=== PATIENT | male | born 1975 | race Caucasian/White ===

== ENCOUNTER → 2018-10-18 | Outpatient (CLI) | payer OTHER ==
--- NOTE | 2018-10-18 17:06 | XR ---
PROCEDURE: XR lumbar spine 3V DATE AND TIME: 10/18/2018 4:53 PM CLINICAL INDICATION: pain after trauma TECHNIQUE: Department protocol COMPARISON: 06/19/2013 FINDINGS: There is no fracture or malalignment. Mild spondylosis changes are appreciated, similar to the prior study. The soft tissues are unremarkable. IMPRESSION: NO ACUTE PROCESS.
== END | disposition home or self-care (01) ==
LOC: RADXRMAIN 16:28
PROVIDERS: ATTEND Emergency Medicine
DX: S39.012A Strain of muscle, fascia and tendon of lower back, initial encounter (principal)
CPT/HCPCS: 72100

== ENCOUNTER 2019-03-22 13:12 | Emergency (ER) | payer BC, OTHER ==
[2019-03-22 13:18] VITALS: BP 153/89; PULSE 83; RESP 20; TEMP 98.3
[2019-03-22] MEDS ORDERED: CYCLOBENZAPRINE 10MG STARTER 3 TAB BTL PO STA (14:15)
[2019-03-22] MEDS ORDERED: KETOROLAC 30 MG/ML 1 ML VIAL IM STA (14:15)
[2019-03-22] MEDS ORDERED: ACET/COD 300 MG/30 MG STARTER PACK 6 TAB BTL PO STA (14:15)
--- NOTE | 2019-03-22 14:18 | ED ---
Back Pain HPI - General Chief Complaint: Back Pain/Injury Stated Complaint: back injury Time Seen by Provider: 03/22/19 13:58 Source: patient Limitations: no limitations - History of Present Illness Initial Comments: 44-year-old male patient presents to the emergency department today for evaluation of low back pain. Patient states he did have a work injury in October. Patient states that he had x-rays done and underwent physical therapy initially. He states that his symptoms never completely improved. States that a couple of days ago he was at work and spent 5 hours sitting and a Hi[employer], when he got up he had onset of low back pain. Patient states his low back feels very stiff and there is a pinching sensation. Patient states occasionally his legs will feel as if they are going to give out. He occasionally has pain radiating down the outside of both legs. He denies numbness or tingling to the lower extremities. Denies any saddle anesthesia or loss of bowel or bladder control. Denies fever or chills. Denies abdominal pain. Patient denies any headache, neck pain, chest pain, shortness of breath, dizziness, weakness, abdominal pain, nausea, vomiting, or difficulties with bowel movements or urination. - Related Data Previous Rx's Medication Instructions Recorded Hydrocodone/Acetaminophen 1 each PO Q4HR PRN #20 tablet 01/28/14 [Hydrocodone/Acetaminophen 5-325] Cyclobenzaprine [Flexeril] 10 mg PO TID #15 tab 03/22/19 Allergies Allergy/AdvReac Type Severity Reaction Status Date / Time No Known Allergies Allergy Verified 03/22/19 13:18 Review of Systems ROS Statement: Those systems with pertinent positive or pertinent negative responses have been documented in the HPI. ROS Other: All systems not noted in ROS Statement are negative. Past Medical History Past Medical History: No Reported History History of Any Multi-Drug Resistant Organisms: None Reported Past Surgical History: Orthopedic Surgery Additional Past Surgical History / Comment(s): Knee reconstruction Past Psychological History: No Psychological Hx Reported Smoking Status: Never smoker Past Alcohol Use History: Rare Past Drug Use History: None Reported General Exam Limitations: no limitations General appearance: alert, in no apparent distress, other (This is a well- developed, well-nourished adult male patient in no acute distress. Vital signs upon presentation are temperature 98.3F, pulse 83, respirations 20, blood pressure 153/89, pulse ox 99% on room air.) Respiratory exam: Present: normal lung sounds bilaterally. Absent: respiratory distress, wheezes, rales, rhonchi, stridor Cardiovascular Exam: Present: regular rate, normal rhythm, normal heart sounds. Absent: systolic murmur, diastolic murmur, rubs, gallop, clicks GI/Abdominal exam: Present: soft, normal bowel sounds. Absent: distended, tenderness, guarding, rebound, rigid Extremities exam: Present: normal inspection, full ROM, normal capillary refill, other (Skin to the lower extremities is pink, warm, dry. Cap refills less than 3 seconds. Post tibial pulses are 2+ and equal bilaterally.). Absent: tenderness, pedal edema, joint swelling, calf tenderness Back exam: Present: normal inspection. Absent: vertebral tenderness Neurological exam: Present: alert, oriented X3, CN II-XII intact Psychiatric exam: Present: normal affect, normal mood Skin exam: Present: warm, dry, intact, normal color. Absent: rash Course Vital Signs 03/22/19 13:15 Temperature 98.3 F Pulse Rate 83 Respiratory 20 Rate Blood Pressure 153/89 O2 Sat by Pulse 99 Oximetry Medical Decision Making - Medical Decision Making 44-year-old male patient presents to the emergency department today for evaluation of exacerbation of low back pain from an injury in October. Physical examination reveals good neurovascular status. He is neurologically intact. Patient had no new injury so x-rays were not obtained today. Discharged with medication for pain management and instructions to apply warm moist heat. He is also instructed to perform gentle range of motion exercises. He is instructed to follow-up with the orthopedic employment specialist/program manager Dr. Fernández. Return parameters were discussed in detail. He verbalizes understanding and agrees with this plan. Disposition Clinical Impression: Low back pain Disposition: HOME SELF-CARE Condition: Good Instructions (If sedation given, give patient instructions): Acute Low Back Pain (ED), Lower Back Exercises (ED), Warm Compress or Soak (ED) Additional Instructions: Take medications as directed. Perform low back exercises 1-2 times per day. Apply warm compresses to the area 20 minutes at a time at least 4 times daily. Follow-up with medical accounts receivable specialist for further evaluation, discuss MRI. Return to the emergency department immediately for any new, worsening, or concerning symptoms. Prescriptions: Cyclobenzaprine [Flexeril] 10 mg PO TID #15 tab Is patient prescribed a controlled substance at d/c from ED?: No Referrals: Solo Jarrett DO [Primary Care Provider] - 1-2 days Rayna Blankenship DO [Doctor of Osteopathic Medicine] - 1-2 days Time of Disposition: 14:18
== END 2019-03-22 14:41 | disposition home or self-care (01) ==
LOC: EC 13:12
DX: M54.5 Low back pain (principal)
CPT/HCPCS: 99283; 96372; J1885

== ENCOUNTER 2019-06-23 13:32 | Observation (INO) | payer BC, OTHER ==
[2019-06-23 14:44] LABS: Basophils # (A) 0.3 k/uL (0-0.2); Basophils % (A) 2 %; Eosinophils # (A) 0.3 k/uL (0-0.7); Eosinophils % (A) 2 %; HCT 49.5 % (39.0-53.0); HGB 16.7 gm/dL (13.0-17.5); Lymphocytes # (A) 0.8 k/uL (1.0-4.8); Lymphocytes % (A) 5 %; MCH 31.3 pg (25.0-35.0); MCHC 33.7 g/dL (31.0-37.0); Mean Platelet Volume 7.2; Monocytes # (A) 0.9 k/uL (0-1.0); Monocytes % (A) 6 %; Neutrophils # (A) 13.1 k/uL (1.3-7.7); Neutrophils % (A) 84 %; Platelet Count 241 k/uL (150-450); RBC 5.32 m/uL (4.30-5.90); RDW 12.4 % (11.5-15.5); WBC 15.5 k/uL (3.8-10.6)
[2019-06-23] MEDS: SODIUM CHLORIDE 0.9% 500 ML 500 ML IV SCH ×2 (14:52→20:01)
[2019-06-23 14:53] LABS: Albumin 4.1 g/dL (3.5-5.0); Potassium 4.2 mmol/L (3.5-5.1); Total Bilirubin 0.7 mg/dL (0.2-1.3); Total Protein 7.1 g/dL (6.3-8.2)
--- NOTE | 2019-06-23 14:58 | ED ---
General Adult HPI - General Chief complaint: Skin/Abscess/Foreign Body Stated complaint: infected tattoo Source: patient, RN notes reviewed Mode of arrival: ambulatory Limitations: no limitations - History of Present Illness Initial comments: 44-year-old male without any significant past medical history presents to the emergency department for a chief complaint of right arm infection. Patient states that 3 days ago on Wednesday he got a tattoo by his friend at his friend's home. States he uses all clean equipment. Patient states that the next day it started to become red and swollen. Patient states he felt like he had a fever at night. He saw his doctor yesterday and had a Rocephin injection around 3:00 PM. He also started Bactrim last night around 5:00 PM. He called his doctor today to check in and his doctor said since it is not getting better he needs to come to the emergency department for evaluation. Patient states infection is not improving on the antibiotics. He does not notice any streaking redness. States he still feels somewhat feverish. Patient has no other complaints at this time including shortness of breath, chest pain, abdominal pain, nausea or vomiting, headache, or visual changes. - Related Data Home Medications Medication Instructions Recorded Confirmed Methylphenidate HCl 27 mg PO DAILY 06/23/19 06/23/19 [Methylphenidate HCl ER] Mupirocin 2% Oint [Bactroban 2% 1 applic TOPICAL BID 06/23/19 06/23/19 Oint] Sulfamethoxazole/Trimethoprim 1 tab PO BID 06/23/19 06/23/19 [Sulfamethoxazole-Tmp Ds Tablet] Allergies Allergy/AdvReac Type Severity Reaction Status Date / Time No Known Allergies Allergy Verified 06/23/19 16:35 Review of Systems ROS Statement: Those systems with pertinent positive or pertinent negative responses have been documented in the HPI. ROS Other: All systems not noted in ROS Statement are negative. Past Medical History Past Medical History: No Reported History History of Any Multi-Drug Resistant Organisms: None Reported Past Surgical History: Orthopedic Surgery Additional Past Surgical History / Comment(s): Knee reconstruction Past Psychological History: No Psychological Hx Reported Smoking Status: Never smoker Past Alcohol Use History: Rare Past Drug Use History: None Reported General Exam Limitations: no limitations General appearance: alert, in no apparent distress Head exam: Present: atraumatic, normocephalic, normal inspection Eye exam: Present: normal appearance, PERRL, EOMI. Absent: scleral icterus, co njunctival injection, periorbital swelling ENT exam: Present: normal exam Neck exam: Present: normal inspection, full ROM. Absent: tenderness, mening ismus, lymphadenopathy Respiratory exam: Present: normal lung sounds bilaterally. Absent: respiratory distress, wheezes, rales, rhonchi, stridor Cardiovascular Exam: Present: regular rate, normal rhythm, normal heart sounds. Absent: systolic murmur, diastolic murmur, rubs, gallop, clicks Extremities exam: Present: full ROM (Full range of motion of the right hand wrist and elbow.), normal capillary refill (Capillary refill less than 2 seconds, radial pulse 2+ in the right upper extremity.), other (Patient has mild erythema with moderate edema noted of the volar right forearm. Compartments are soft. new tattoo is noted with small peeling of skin. No streaking redness. I do not see any pustules or abscesses.). Absent: tenderness (Tenderness along the medial aspect of the right forearm), pedal edema, calf tenderness Course Vital Signs 06/23/19 06/23/19 13:44 17:31 Temperature 99.5 F Pulse Rate 105 H 93 Respiratory 18 18 Rate Blood Pressure 144/83 138/67 O2 Sat by Pulse 98 97 Oximetry Medical Decision Making - Medical Decision Making Patient mild tachycardic with a heart rate of 105. Temperature is 99.5. Patient has not developed a fever here in the emergency department. Patient does have leukocytosis with a left shift which is likely secondary to the infection. CMP unremarkable. Creatinine is 1.41 however this appears chronic. Lactic 0.9. X-ray shows no acute osseous abnormality. There is soft tissue swelling diffusely. I discussed this case with Dr. Mcclelland. At this time as patient has been on antibiotics for about 24 hours and infection is not improving in his fund of leukocytosis with subjective fevers he will be admitted for IV antibiotics. Patient was started on Rocephin and vancomycin was added to cover for MRSA. Dr. Chapman recommends 2 g Kefzol every 8 hours - Lab Data Result diagrams: 06/23/19 14:28 06/23/19 14:28 Lab Results 06/23/19 06/23/19 06/23/19 Range/Units 14:28 14:28 14:28 WBC 15.5 H (3.8-10.6) k/uL RBC 5.32 (4.30-5.90) m/uL Hgb 16.7 (13.0-17.5) gm/dL Hct 49.5 (39.0-53.0) % MCV 93.0 (80.0-100.0) fL MCH 31.3 (25.0-35.0) pg MCHC 33.7 (31.0-37.0) g/dL RDW 12.4 (11.5-15.5) % Plt Count 241 (150-450) k/uL Neutrophils % 84 % Lymphocytes % 5 % Monocytes % 6 % Eosinophils % 2 % Basophils % 2 % Neutrophils # 13.1 H (1.3-7.7) k/uL Lymphocytes # 0.8 L (1.0-4.8) k/uL Monocytes # 0.9 (0-1.0) k/uL Eosinophils # 0.3 (0-0.7) k/uL Basophils # 0.3 H (0-0.2) k/uL Sodium 136 L (137-145) mmol/L Potassium 4.2 (3.5-5.1) mmol/L Chloride 102 (98-107) mmol/L Carbon Dioxide 25 (22-30) mmol/L Anion Gap 9 mmol/L BUN 14 (9-20) mg/dL Creatinine 1.41 H (0.66-1.25) mg/dL Est GFR (CKD-EPI)AfAm 71 (>60 ml/min/1.73 sqM) Est GFR (CKD-EPI)NonAf 61 (>60 ml/min/1.73 sqM) Glucose 105 H (74-99) mg/dL Plasma Lactic Acid Bernardino 0.9 (0.7-2.0) mmol/L Calcium 9.0 (8.4-10.2) mg/dL Total Bilirubin 0.7 (0.2-1.3) mg/dL AST 41 (17-59) U/L ALT 30 (4-49) U/L Alkaline Phosphatase 64 (38-126) U/L Total Protein 7.1 (6.3-8.2) g/dL Albumin 4.1 (3.5-5.0) g/dL Disposition Clinical Impression: Cellulitis, Leukocytosis Disposition: ADMITTED IP TO THIS HOSP Condition: Fair Is patient prescribed a controlled substance at d/c from ED?: No Time of Disposition: 15:45
--- NOTE | 2019-06-23 15:21 | XR ---
EXAMINATION TYPE: XR forearm RT DATE OF EXAM: 06/23/2019 COMPARISON: None HISTORY: Infected tattoo swelling right arm TECHNIQUE: 2 view right forearm FINDINGS: No acute fractures or dislocations are evident. No cortical erosion is evident No radiopaque foreign bodies in soft tissues. Diffuse soft tissue swelling present. IMPRESSION: 1. No acute osseous abnormality. Soft tissue swelling diffusely
[2019-06-23] MEDS ORDERED: traMADol 50 MG TAB PO PRN (15:45)
[2019-06-23] MEDS ORDERED: ACETAMINOPHEN TAB 325 MG TAB PO PRN (15:45)
[2019-06-23] MEDS ORDERED: NALOXONE 0.4 MG/ML 1 ML VIAL IV PRN (15:45)
[2019-06-23] MEDS ORDERED: VANCOMYCIN IV PER PHARMACY 1 EACH MISC MISCELLANE PRN (15:47)
[2019-06-23] MEDS ORDERED: VANCOMYCIN 1,750 MG in SODIUM CHLORIDE 0.9% 500 ML 500 ML IVPB ONE (16:00)
[2019-06-23] MEDS ORDERED: TEMAZEPAM 15 MG CAP PO PRN (18:05)
[2019-06-23] MEDS ORDERED: ALPRAZolam 0.25 MG TAB PO PRN (18:05)
[2019-06-23] MEDS: SODIUM CHLORIDE 0.9% 1,000 ML IV SCH ×2 (20:01→23:29)
[2019-06-23] MEDS: diphenhydrAMINE 50 MG/ML 1 ML VIAL IVP SCH ×2 (20:17→23:27)
[2019-06-23] MEDS: FAMOTIDINE 20 MG/2 ML VIAL IV SCH (21:12)
--- NOTE | 2019-06-23 21:28 | HP ---
HISTORY AND PHYSICAL I am covering for Dr. Jarrett. DATE OF SERVICE: 06/23/2019 CHIEF COMPLAINTS: Pain and swelling and redness of the right forearm after the tattoos. HISTORY OF PRESENT ILLNESS: This 44-year-old gentleman with a past medical history of no significant medical issues otherwise being followed by Dr. Jarrett in the outpatient setting recently had a tattoo on the right forearm. The patient apparently had a tattoo from the voice over artist at home, where the artist was keeping everything sterile, according to him. The patient apparently put a new substance on top of it and was taped over cellophane tape, but subsequently the patient was feeling uncomfortable and took off that cellophane tape off before the prescribed period. The patient noted some redness and erythema and some pain and the patient came to [facility] for further evaluation and treatment. The patient was started on outpatient antibiotics. X-rays have been taken and the patient was admitted for further evaluation and treatment. The patient also had a fever. He was given one dose of Rocephin, also. There is no history of any headache, loss of consciousness. No chest pain, palpitations, hematochezia or melena at this time. PAST MEDICAL HISTORY: History of knee reconstruction. HOME MEDICATIONS: 1. Bactrim DS one p.o. b.i.d. 2. Neosporin 2% local application. 3. Methylphenidate 27 mg p.o. daily. ALLERGIES: NONE. FAMILY HISTORY: No history of heart disease or strokes in the family. SOCIAL HISTORY: No history of smoking. No history of alcohol intake. REVIEW OF SYSTEMS: ENT: No diminished hearing. No diminished vision. CARDIOVASCULAR SYSTEM: No angina, palpitations. RESPIRATORY SYSTEM: No cough, hemoptysis. GI: No nausea, vomiting, diarrhea. : No dysuria or retention. NERVOUS SYSTEM: No numbness, weakness. ALLERGY/IMMUNOLOGY: No asthma, hayfever. MUSCULOSKELETAL: As mentioned earlier. HEMATOLOGY/ONCOLOGY: No history of anemia. ENDOCRINE: No history of diabetes, hypothyroidism. CONSTITUTIONAL: As mentioned earlier. DERMATOLOGY: Negative. RHEUMATOLOGY: Negative. PSYCHIATRY: As mentioned earlier. PHYSICAL EXAMINATION: Patient alert and oriented x3. Pulse 93, blood pressure 130/67, respiration 18, temperature 99.5, pulse ox 97% on room air. HEENT: Conjunctivae normal. NECK: No jugular venous distention. CARDIOVASCULAR SYSTEM: S1, S2 muffled. RESPIRATORY SYSTEM: Breath sounds diminished at the bases. No rhonchi. No crackles. ABDOMEN: Soft, non-tender. LEGS: No edema. No swelling. NERVOUS SYSTEM: No focal deficit. EXAMINATION OF THE RIGHT HAND: Significant erythema as well as swelling and tenderness of the area of the new tattoo which was black in color and fills up almost all the volar aspect of the right forearm. Some erythema also noted in the site and the periphery where the cellophane tape was there apparently. SKIN: As mentioned earlier. JOINTS: No active deforming arthropathy. LYMPHATICS: No lymph node palpable in neck, axillae or groin. LABS: WBC 15.5 and creatinine is 1.41. Previous creatinine was up to 1.29, but subsequently normal. ASSESSMENT: 1. Acute cellulitis of the right forearm with systemic inflammatory response syndrome. 2. Increased white count. 3. Increased creatinine; possibly mild acute renal failure. 4. Hyponatremia. 5. Rule out allergy. 6. History of knee reconstruction. RECOMMENDATIONS AND DISCUSSION: In this 44-year-old gentleman who presented with multiple complex medical issues, we will monitor the patient closely, continue the current medications, continue symptomatic treatment. Will initiate broad-spectrum IV antibiotics. Otherwise, IV fluids. Repeat labs in the morning. Other than that, I would recommend continuing the current medications. Symptomatic treatment also will be provided. I would also recommend antiallergic medications and continue to monitor. Further recommendations to follow. A copy of this dictation is being forwarded to Dr. Jarrett, who is the primary physician. Discussed with the patient, who understands and agrees. MMODL / IJN: [id number] / MTDD
[2019-06-24] MEDS ORDERED: VANCOMYCIN 1,750 MG in SODIUM CHLORIDE 0.9% 500 ML 500 ML IVPB SCH (05:00)
[2019-06-24] MEDS: diphenhydrAMINE 50 MG/ML 1 ML VIAL IVP SCH ×3 (05:20→17:15)
[2019-06-24] MEDS: FAMOTIDINE 20 MG/2 ML VIAL IV SCH ×2 (07:42→19:39)
[2019-06-24 08:13] LABS: Calcium 8.1 mg/dL (8.4-10.2); Potassium 4.3 mmol/L (3.5-5.1)
[2019-06-24 08:55] LABS: Basophils # (A) 0.1 k/uL (0-0.2); Basophils % (A) 1 %; Eosinophils # (A) 0.3 k/uL (0-0.7); Eosinophils % (A) 2 %; HCT 45.9 % (39.0-53.0); HGB 15.4 gm/dL (13.0-17.5); Lymphocytes # (A) 1.2 k/uL (1.0-4.8); Lymphocytes % (A) 12 %; MCH 31.8 pg (25.0-35.0); MCHC 33.5 g/dL (31.0-37.0); MCV 94.7 fL (80.0-100.0); Mean Platelet Volume 7.8; Monocytes # (A) 0.6 k/uL (0-1.0); Monocytes % (A) 6 %; Neutrophils # (A) 8.1 k/uL (1.3-7.7); Neutrophils % (A) 77 %; Platelet Count 223 k/uL (150-450); RBC 4.84 m/uL (4.30-5.90); RDW 12.6 % (11.5-15.5); WBC 10.6 k/uL (3.8-10.6)
[2019-06-24] MEDS: METHYLPHENIDATE HCL 5 MG TAB PO SCH ×3 (09:51→10:41)
[2019-06-24] MEDS: SODIUM CHLORIDE 0.9% 1,000 ML IV SCH (11:37)
--- NOTE | 2019-06-24 20:26 | PN ---
PROGRESS NOTE DATE OF SERVICE: 06/24/2019 I am covering for Dr. Jarrett. This 44-year-old gentleman admitted with significant cellulitis after tattoo in the right forearm is being closely monitored at this time. No chest pain. No palpitations. No fever. Patient on IV antibiotics. Cultures are negative so far. EXAM: Alert and oriented times three. Pulse is 73. Blood pressure 133/84, respiration 16, temperature 98.1, pulse ox 98% on room air. HEENT is conjunctivae normal. NECK: No JVD. CARDIOVASCULAR: S1, S2 normal. RESPIRATIONS: Breath sounds diminished in the bases. No rhonchi. No crackles. ABDOMEN is soft, nontender. LEGS no edema. No swelling. Examination of the right forearm still significant swelling and tattoo area present. Some erythema, is improving significantly. Nervous system: No focal deficits. LABS: WBC 10.6, sodium 135 and creatinine is 1.35. ASSESSMENT: 1. Acute cellulitis of the right forearm with SARS present on admission, at the site of recent tattoo. 2. Increased WBC. 3. Increased creatinine with possible mild acute renal failure. 4. Hyponatremia. 5. Rule out allergic reaction. 6. History of knee reconstruction. RECOMMENDATIONS AND DISCUSSION: I recommend to continue current medications, symptomatic treatment. Continue with IV antibiotics. Otherwise, I would recommend to continue to follow. Continue with cautious IV fluids. Repeat labs tomorrow and further recommendations to follow. Recommend the patient follow up with Dr. Jarrett closely after discharge. MMODL / IJN: [id number] /
[2019-06-25] MEDS: diphenhydrAMINE 50 MG/ML 1 ML VIAL IVP SCH ×5 (01:00→23:55)
[2019-06-25] MEDS: SODIUM CHLORIDE 0.9% 1,000 ML IV SCH ×2 (02:40→18:46)
[2019-06-25] MEDS: METHYLPHENIDATE HCL 5 MG TAB PO SCH ×2 (07:55→13:25)
[2019-06-25] MEDS: FAMOTIDINE 20 MG/2 ML VIAL IV SCH ×2 (07:56→19:36)
[2019-06-25 08:09] LABS: Calcium 8.4 mg/dL (8.4-10.2); Potassium 4.4 mmol/L (3.5-5.1)
[2019-06-25 08:15] LABS: Basophils # (A) 0.1 k/uL (0-0.2); Basophils % (A) 2 %; Eosinophils # (A) 0.2 k/uL (0-0.7); Eosinophils % (A) 3 %; HCT 46.6 % (39.0-53.0); HGB 15.7 gm/dL (13.0-17.5); Lymphocytes # (A) 1.1 k/uL (1.0-4.8); Lymphocytes % (A) 15 %; MCH 31.7 pg (25.0-35.0); MCHC 33.6 g/dL (31.0-37.0); MCV 94.1 fL (80.0-100.0); Mean Platelet Volume 7.7; Monocytes # (A) 0.5 k/uL (0-1.0); Monocytes % (A) 6 %; Neutrophils # (A) 5.6 k/uL (1.3-7.7); Neutrophils % (A) 73 %; Platelet Count 248 k/uL (150-450); RBC 4.95 m/uL (4.30-5.90); RDW 12.7 % (11.5-15.5); WBC 7.7 k/uL (3.8-10.6)
--- NOTE | 2019-06-25 19:19 | PN ---
PROGRESS NOTE DATE OF SERVICE: 06/25/2019 This 44-year-old gentleman who was admitted with significant infection and cellulitis of the right forearm, on IV antibiotics. The patient had persistent swelling. Infectious disease evaluation has been sought. No chest pain. No palpitations. No fever. PHYSICAL EXAMINATION: Alert and oriented x3. Pulse 78, blood pressure 137/76, respirations 16, temperature 98.7, pulse ox 98% on room air skin: EYES: Conjunctivae normal. NECK: No JVD. CARDIOVASCULAR: S1, S2 muffled. LUNGS: Diminished breath sounds at the bases. No rhonchi, no crackles. ABDOMEN: Soft, nontender. LEGS: No swelling. NERVOUS SYSTEM: No focal deficits. Examination of the right forearm: Significant swelling present. Erythema around the tattoo obey is also present. LABS: CBC within normal. BMP also within normal. ASSESSMENT: 1. Acute cellulitis of the right forearm with systemic inflammatory response syndrome present on admission at the site of new tattoo. 2. Increased WBC, improved. 3. Increased creatinine with possible mild acute renal failure, improved. 4. Hyponatremia. 5. Rule out allergic reaction. 6. History of knee reconstruction. RECOMMENDATIONS AND DISCUSSION: Recommend to continue current medication, continue to monitor, continue the IV antibiotics. Also recommend infectious disease evaluation because of the persistent swelling and as well as the erythema also. Cefazolin has been initiated at this time and continue the rest of medications, pain medications, and Dr. Jarrett will follow tomorrow. MMODL / IJN: [id number] /
[2019-06-26] MEDS: diphenhydrAMINE 50 MG/ML 1 ML VIAL IVP SCH (05:11)
[2019-06-26] MEDS: SODIUM CHLORIDE 0.9% 1,000 ML IV SCH (06:02)
--- NOTE | 2019-06-26 06:48 | CONS ---
CONSULTATION DATE OF SERVICE: 06/25/2019 REASON FOR CONSULTATION: Right forearm cellulitis. HISTORY OF PRESENT ILLNESS: The patient is a 44-year-old male who did have a tattoo on his right forearm on Wednesday that is 3 days prior to presentation to the hospital. The patient subsequently developing pain and swelling and redness to the right arm, describing the pain to be more of a throbbing and sharp intensity about 5 to 6/10 and no radiation with associated swelling and redness. The patient felt feverish. The patient apparently has been evaluated by PCP in the outpatient setting and received a dose of Rocephin and was started on Bactrim DS. However, the patient apparently was not feeling well the next day, hence he presented to the hospital. On presentation to the hospital, the patient did have a low-grade fever of 99.5. He did have elevated white count 15.5. Patient received a dose of vancomycin and cefazolin. He did have x- rays of the arm did show some soft tissue swelling. Hence, Infectious Disease was consulted for further recommendations regarding antibiotic therapy. REVIEW OF SYSTEMS: Positive points has been mentioned in HPI. Rest of systems negative. PAST MEDICAL HISTORY: No major illnesses. PAST SURGICAL HISTORY: reconstruction. SOCIAL HISTORY: Rarely drinks. Denies smoking or drug use. FAMILY HISTORY: No pertinent findings noticed. ALLERGIES: No known drug allergies. MEDICATIONS: Medications include the patient is currently on Tylenol, Xanax, cefazolin 2 grams q.8 hours, Benadryl, Pepcid, Ritalin, Narcan, Restoril and Ultram. PHYSICAL EXAMINATION: Blood pressure is 137/76, pulse of 78, temperature is 98.7. He is 99% on room air. General description is a middle-aged male lying in bed in no distress. No tachypnea or accessory muscle of respiration use. HEENT: Examination shows no pallor or scleral icterus. Oral mucous membranes dry. No pharyngeal erythema or thrush. NECK: Trachea is central. No thyromegaly. LUNGS: Unlabored breathing, clear to auscultation anteriorly. No wheeze or crackle. HEART: S1, S2. Regular rate and rhythm. ABDOMEN: Soft, no tenderness. No guarding or rigidity. EXTREMITIES: No edema of feet. EXAMINATION RIGHT ARM: Tattoo site has minimal swelling, apparently the redness has seemed to be improved. There is no induration or fluctuation or drainage. NEUROLOGICALLY: The patient is awake, alert, oriented x3. Mood and affect normal. LABS: Hemoglobin is 15.7 with white count 7.7 admission white count 15.5. BUN of 12, creatinine 1.24. Blood culture has been negative so far. DIAGNOSTIC IMPRESSION AND PLAN: Patient with right arm cellulitis site of his recent tattoo, likely from a gram- positive skin chase such as strep. Clinically doubt methicillin-resistant Staphylococcus aureus or gram-negative infection. PLAN: 1. We will keep the patient on cefazolin 2 grams q.8 hours for another 24 hours while waiting for the blood culture to finalized. 2. If the blood culture remains to be negative and the patient did show overall improvement to finish therapy with oral Keflex 500 p.o. q.6 hours for another 7 to 10 days and a close outpatient followup. Thank you for this consultation. Will follow this patient along with you. MMPALLAVI / LLOYDN: [id number] / ROSANNA
[2019-06-26 06:56] VITALS: BP 143/94; PULSE 66; RESP 16; TEMP 98.5
[2019-06-26] MEDS: METHYLPHENIDATE HCL 5 MG TAB PO SCH (06:57)
[2019-06-26] MEDS: FAMOTIDINE 20 MG/2 ML VIAL IV SCH (06:58)
[2019-06-26 07:00] LABS: Basophils % (A) 0 %; Eosinophils # (A) 0.3 k/uL (0-0.7); Eosinophils % (A) 4 %; HCT 46.3 % (39.0-53.0); HGB 15.7 gm/dL (13.0-17.5); Lymphocytes # (A) 1.5 k/uL (1.0-4.8); Lymphocytes % (A) 20 %; MCV 94.2 fL (80.0-100.0); Mean Platelet Volume 7.2; Monocytes # (A) 0.4 k/uL (0-1.0); Monocytes % (A) 5 %; Neutrophils # (A) 5.4 k/uL (1.3-7.7); Neutrophils % (A) 69 %; Platelet Count 262 k/uL (150-450); RBC 4.92 m/uL (4.30-5.90); RDW 12.6 % (11.5-15.5); WBC 7.8 k/uL (3.8-10.6)
[2019-06-26 07:14] LABS: Calcium 8.5 mg/dL (8.4-10.2); Potassium 4.4 mmol/L (3.5-5.1)
--- NOTE | 2019-06-26 10:09 | P.DS ---
Providers Date of admission: 06/23/19 15:50 Expected date of discharge: 06/26/19 Attending physician: Solo Jarrett Consults: 06/25/19 11:16 Consult Physician Routine Consulting Provider: Liam Richter Consult Reason/Comments: cellulitis Do you want consulting provider notified?: Already Contacted Primary care physician: Solo Jarrett [facility] Course: Final Diagnoses: Acute cellulitis of right forearm at the site of new tattoo with early sepsis, present on admission, failed outpatient treatment. Suspect strep, doubt MRSA clinically as per ID. Leukocytosis, secondary to the above, resolved Acute renal failure Hospital course: This a 44-year-old gentleman admitted with significant infection/cellulitis of the right forearm at the site of new tattoo, failed outpatient treatment. Evaluated by infectious disease. Maintained on IV antibiotics with significant clinical improvement. Afebrile, normal WBC, blood cultures remain negative at 48 hours. Patient is being discharged home on Keflex, as recommended per ID, in a stable condition with guarded prognosis. EXAM: GEN: Alert and oriented 3, no acute distress CV: Regular S1 and S2 LUNGS: Clear to auscultation ABD: Soft nontender nondistended, positive bowel sounds EXT: Right forearm tattoo site minimal edema, redness and tenderness. No induration, no drainage. NEURO: No focal deficits. The impression and plan of care has been dictated as directed. : I performed a history and examination of this patient, discussed the same with the dictator. I agree with the dictator's note ,documented as a scribe. Any additional findings or plans will be noted. Patient Condition at Discharge: Stable Plan - Discharge Summary Discharge Rx Participant: No New Discharge Prescriptions: New Cephalexin [Keflex] 500 mg PO Q6HR #40 cap Pantoprazole Sodium [Protonix] 40 mg PO DAILY #10 tablet.dr Granados Methylphenidate HCl [Methylphenidate HCl ER] 27 mg PO DAILY Discontinued Sulfamethoxazole/Trimethoprim [Sulfamethoxazole-Tmp Ds Tablet] 1 tab PO BID Mupirocin 2% Oint [Bactroban 2% Oint] 1 applic TOPICAL BID Discharge Medication List Methylphenidate HCl [Methylphenidate HCl ER] 27 mg PO DAILY 06/23/19 [History] Cephalexin [Keflex] 500 mg PO Q6HR #40 cap 02/10/20 [Rx] Pantoprazole Sodium [Protonix] 40 mg PO DAILY #10 tablet. 06/26/19 [Rx] Follow up Appointment(s)/Referral(s): Solo Jarrett DO [Primary Care Provider] - 07/04/19 11:40 am Ambulatory/Diagnostic Orders: Complete Blood Count w/diff [LAB.AMB] Time Frame: 3 Days, Location: None Selected Patient Instructions/Handouts: Cellulitis (DC) Activity/Diet/Wound Care/Special Instructions: off work until F/U visit. Please provide note/form
== END 2019-06-26 10:19 | disposition home or self-care (01) ==
LOC: EC 13:32 → INTOOBSV 15:50 → 4SSUR 15:50 → UNDODISIN 06-26 10:19
PROVIDERS: ADMIT Family Medicine; ATTEND Family Medicine
DX: A41.9 Sepsis, unspecified organism (principal); L03.113 Cellulitis of right upper limb; N17.9 Acute kidney failure, unspecified; E87.1 Hypo-osmolality and hyponatremia; Z98.890 Other specified postprocedural states; Z79.899 Other long term (current) drug therapy
CPT/HCPCS: 96376 ×4; 96366 ×4; 96367; 96375; 96361; 96365; 99284; 36415; 80053; 80048 ×3; 83605; 85025 ×4; 87040; 73090; G0378 ×4; J3370; J1200 ×4; J0690 ×4; J0696

== ENCOUNTER → 2020-03-25 | Outpatient (CLI) | payer BC | END | disposition home or self-care (01) | LOC: LABWHC1 14:57 | PROVIDERS: ATTEND Emergency Medicine | DX: Z20.828 Contact with and (suspected) exposure to other viral communicable diseases (principal) | CPT/HCPCS: U0003; C9803 ==

== ENCOUNTER → 2021-04-04 | Outpatient (CLI) | payer OTHER ==
--- NOTE | 2021-04-05 05:05 | MR ---
EXAMINATION TYPE: MR knee LT wo con DATE OF EXAM: 04/04/2021 COMPARISON: None HISTORY: Sprain of left knee Multiplanar multiecho imaging of the left knee without contrast. There is intact anterior and posterior cruciate ligaments. There is a mild knee joint effusion. There is small area of increased signal in the posterior horn of the medial meniscus without extension to the articular surface. The lateral meniscus appears intact. The collateral ligaments are intact. Ther e is mild narrowing of the medial joint space of the knee. There is mild spurring of the femoral and tibial condyles. I see no evidence of a fracture. There is no focal bone destruction. IMPRESSION: Mild knee joint effusion. Small intrasubstance tear posterior horn of the medial meniscus. No evidenc e of ligamentous tear. Osteoarthritic mild changes.
== END ==
LOC: RADMRIMAIN 18:58
PROVIDERS: ATTEND Emergency Medicine
DX: M23.322 Other meniscus derangements, posterior horn of medial meniscus, left knee (principal); M25.462 Effusion, left knee; M17.12 Unilateral primary osteoarthritis, left knee

== ENCOUNTER → 2021-05-30 | Outpatient (CLI) | payer BC ==
[2021-05-30 09:07] LABS: Basophils % (A) 1 %; Eosinophils # (A) 0.2 k/uL (0-0.7); Eosinophils % (A) 2 %; HCT 45.9 % (39.0-53.0); HGB 15.7 gm/dL (13.0-17.5); Lymphocytes # (A) 1.7 k/uL (1.0-4.8); Lymphocytes % (A) 23 %; MCH 31.5 pg (25.0-35.0); MCHC 34.2 g/dL (31.0-37.0); Mean Platelet Volume 7.1; Monocytes # (A) 0.5 k/uL (0-1.0); Monocytes % (A) 7 %; Neutrophils # (A) 4.7 k/uL (1.3-7.7); Neutrophils % (A) 65 %; Platelet Count 252 k/uL (150-450); RBC 4.98 m/uL (4.30-5.90); RDW 11.3 % (11.5-15.5); WBC 7.2 k/uL (3.8-10.6)
[2021-05-30 09:15] LABS: Potassium 4.4 mmol/L (3.5-5.1)
== END | disposition home or self-care (01) ==
LOC: LABPAT 08:21
PROVIDERS: ATTEND Family Medicine
DX: Z01.812 Encounter for preprocedural laboratory examination (principal); M23.92 Unspecified internal derangement of left knee
CPT/HCPCS: 36415; 80051; 85025

== ENCOUNTER 2021-06-13 07:43 | Day surgery (SDC) | payer BC, OTHER ==
[2021-06-10 16:06] VITALS: BMI 31.5
--- NOTE | 2021-06-12 12:33 | HP ---
HISTORY AND PHYSICAL CHIEF COMPLAINT: Left knee pain. 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 He missed a step and hyperextended his knee. He notes medial pain ever since. He notes his knee feels unstable, wants to give out. He has tried medications in addition to an injection and activity modifications without much relief. He notes daily pain that limits him. PAST MEDICAL HISTORY: Significant for attention deficit disorder. PAST SURGICAL HISTORY: Significant for right knee ACL reconstruction in addition to previous hand surgery. CURRENT MEDICATIONS: Aleve and Concerta. ALLERGIES: He denies drug allergies. FAMILY HISTORY: Negative. SOCIAL HISTORY: Negative for current tobacco or alcohol use. REVIEW OF SYSTEMS: Sixteen-point review of systems otherwise reviewed and is noncontributory. PHYSICAL EXAMINATION: On examination, the patient is approximately 5 foot 10, 225 pounds of mesomorphic habitus. HEENT exam is nonfocal. Neck is supple. He has painless passive motion of his left hip. Straight leg raise is negative. Active motion left knee -7 to 130 degrees of flexion. He has a trace effusion. He is tender about the medial joint line. Collaterals are stable, Nirmal is negative, Jolie's elicits medial pain. His distal neurovascular exam appears intact in the left lower extremity. MRI report left knee 04/04/2021 shows evidence of a posterior medial meniscal tear along with some degenerative changes involving the medial meniscus. IMPRESSION: 1. Left knee internal derangement with symptomatic medial meniscal tear. 2. Left knee moderate medial compartment osteoarthrosis. RECOMMENDATIONS: I talked to the patient at length regarding his condition along with treatment options. At this point, he is quite symptomatic, having pain and mechanical symptoms despite previous conservative measures. After thorough discussion, he opts to proceed with surgery. We will plan to proceed with arthroscopic evaluation with probable partial medial meniscectomy and possible medial femoral chondrectomy. We will likely perform that as an outpatient procedure. MMODL / IJN: [id number] /
[~2021-06-13 07:43] MED LIST: DEXAMETHASONE SOD PHOSPHATE 4 MG/ML 1 ML VIAL IV ONE; LACTATED RINGERS 1,000 ML IV SCH; LIDOCAINE 1% (10MG/ML) FOR IV START INTRADERMA PRN; MIDAZOLAM 2 MG/2 ML VIAL IV PRN; ONDANSETRON 4 MG/2 ML VIAL IVP ONE
[2021-06-13 08:22] VITALS: RESP 16
[2021-06-13] MEDS ORDERED: LIDOCAINE 1% INJ 10MG/ML (20 ML MDV) ONE (09:14)
[2021-06-13] MEDS ORDERED: fentaNYL (PF) 50 MCG/ML 2 ML AMP ONE (09:14)
[2021-06-13] MEDS ORDERED: MIDAZOLAM 2 MG/2 ML VIAL ONE (09:14)
[2021-06-13] MEDS ORDERED: KETOROLAC 15 MG/ML 1 ML VIAL ONE (09:14)
[2021-06-13] MEDS ORDERED: PROPOFOL 10 MG/ML 20 ML VIAL IV ONE (09:14)
[2021-06-13] MEDS ORDERED: EPINEPHrine (PF) 1 ML in SODIUM CHLORIDE 0.9% IRRIGATIO 3,000 ML IRRIGATION ONE ×4 (09:28)
--- NOTE | 2021-06-13 10:02 | P.OP ---
Date of Procedure: 06/13/21 Preoperative Diagnosis: Left knee internal derangement Postoperative Diagnosis: Left knee posterior medial meniscal tear/grade 3 chondral injury posterior medial portion medial femoral condyle Procedure(s) Performed: Left knee arthroscopic partial medial meniscectomy/medial femoral chondrectomy Anesthesia: JULIO C Surgeon: Alex Chance Estimated Blood Loss (ml): 10 Pathology: none sent Condition: stable Disposition: PACU Indications for Procedure: The patient's a 46-year-old male who presents with progressive left knee pain and mechanical symptoms despite conservative measures. A discussion of the risks and benefits of operative intervention versus continued conservative m easures with patient preoperatively with surgery. Operative risks to include infection, neurovascular injury, development of blood clots, possible incomplete resolution of symptoms, possible worsening symptoms and need for subsequent procedures was discussed. Informed consent was obtained. Operative Findings: As below Description of Procedure: The patient was brought to the operating room, and after induction of general anesthesia examined the left knee. Collaterals were stable, Nirmal was negative, and posterior drawer was negative. The left lower extremity was prepped and draped in a normal fashion. A superior lateral portal was made through a 3 mm skin incision superior and lateral to the patella. This was used for outflow. A lateral portal was made through a 5 mm vertical skin incision lateral to the patella tendon above the joint line. Diagnostic arthroscopy was performed. On inspection of the medial compartment, a complex tear involving the posterior medial aspect of the medial meniscus was noted in the white-red junction. This was debrided back to stable base with straight baskets and a motorized shaver. Grade 2-3 chondral changes were noted involving the distal lateral portion of the medial femoral condyle posteriorly. There were loose chondral flaps treated back to stable base the motorized shaver. On inspection of the notch, the anterior cruciate ligament appeared to be intact. On inspection of the lateral compartment, the lateral meniscus and articular cartilage appeared to be intact. On inspection of the patellofemoral articulation, there was grade 2-3 chondral changes diffusely involving the femoral trochlea. The gutters were clear debris. The knee was then thoroughly irrigated. The portals were closed with Steri-Strips. A sterile dressing was applied in addition to a compression stocking. The patient was awoken from general anesthesia and transferred to recovery room in good condition. Blood loss was estimated at 10 mL. No complications were incurred.
[2021-06-13 10:10] VITALS: TEMP 97
[2021-06-13] MEDS: HYDROmorphone 0.5 MG/0.5 ML SYRINGE IVP PRN ×4 (10:16→10:38)
[2021-06-13] MEDS ORDERED: HYDROcodone/APAP 5-325MG 1 EACH TAB ONE (11:05)
[2021-06-13] MEDS ORDERED: HYDROcodone/APAP 5-325MG 1 EACH TAB PO ONE (11:08)
[2021-06-13 11:09] VITALS: BP 138/88; PULSE 67
== END 2021-06-13 11:54 | disposition home or self-care (01) ==
LOC: OR 07:43
PROVIDERS: ATTEND Orthopaedic Surgery
DX: M23.92 Unspecified internal derangement of left knee (principal); S83.242A Other tear of medial meniscus, current injury, left knee, initial encounter; X50.1XXA Overexertion from prolonged static or awkward postures, initial encounter; M17.12 Unilateral primary osteoarthritis, left knee; F98.8 Other specified behavioral and emotional disorders with onset usually occurring in childhood and adolescence; Z79.1 Long term (current) use of non-steroidal anti-inflammatories (NSAID); Z79.899 Other long term (current) drug therapy
CPT/HCPCS: 29881; J2250; J1100; J0690; J2405; J0171; J2001; J3010; J1885; J2704; J1170

== ENCOUNTER → 2023-04-29 | Outpatient (CLI) | payer BC ==
--- NOTE | 2023-04-30 08:00 | XR ---
EXAMINATION TYPE: XR chest 2V DATE OF EXAM: 04/29/2023 4:05 PM CLINICAL INDICATION:Male, 48 years old with history of R05.9 Wheezing/cough; [facility] COMPARISON: Chest radiographs from 09/16/2011 TECHNIQUE: XR chest 2V Frontal and lateral views of the chest. FINDINGS: Lungs/Pleura: There is no evidence of pleural effusion, focal consolidation, or pneumothorax. Pulmonary vascularity: Unremarkable. Heart/mediastinum: Cardiomediastinal silhouette is unremarkable. Musculoskeletal: No acute osseous pathology. Other findings: None IMPRESSION: No acute cardiopulmonary disease/process.
== END | disposition home or self-care (01) ==
LOC: RADXRMAIN 15:54
PROVIDERS: ATTEND Family Medicine
DX: R05.9 Cough, unspecified (principal)
CPT/HCPCS: 71046